=== PATIENT | female | born 1980 | race African-American/Black ===

== ENCOUNTER 2021-10-18 15:37 | Emergency (ER) | payer MEDICAID, MEDICARE, OTHER ==
[2021-10-18] MEDS ORDERED: Fluorescein Opthalmic Strip ONE (16:26)
[2021-10-18] MEDS ORDERED: Proparacaine 0.5% Opth 15 ML BOT ONE (16:27)
== END 2021-10-18 16:57 | disposition home or self-care (01) ==
LOC: ERS 15:37
DX: H57.89 Other specified disorders of eye and adnexa (principal); I10 Essential (primary) hypertension; F17.210 Nicotine dependence, cigarettes, uncomplicated
CPT/HCPCS: 99283

== ENCOUNTER 2022-10-15 21:29 | Emergency (ER) | payer OTHER, MEDICAID ==
[2022-10-15 23:57] LABS: Bacteria/HPF None Seen HPF (None Seen); Bilirubin Negative (Negative); Blood, Urine Negative (Negative); CAUTI Indications for Culture Pelvic or flank pain; Clarity Clear (Clear); Glucose, Urine (Dipstick) Normal (Negative); Ketone, Urine Negative (Negative); Leukocyte Negative Leu/uL (Negative); Nitrite Negative (Negative); Protein, Urine (Dipstick) 10 mg/dL (Neg-Trace); RBC/HPF 0-3 HPF (0-3); Specific Gravity, Urine 1.035 (1.002-1.036); Squamous Epithelial 0-3 HPF (0-3)
[2022-10-15 23:58] LABS: Pregnancy Test - Urine (BHCG) Negative (Negative); Pregu Control Background? CLEAR/WHITE (CLR/WHITE); Pregu Control Bar Appear? YES (CONTROL BAR); Specific Gravity 1.035 (1.002-1.036); Urine Culture Reflex No No
[2022-10-16] MEDS ORDERED: cefTRIAXone (ROCEPHIN) 500 MG VIAL ONE (01:09)
[2022-10-16] MEDS ORDERED: Lidocaine 1% PF 5 ML VIAL ONE (01:09)
[2022-10-16] MEDS ORDERED: Doxycycline 100 MG CAP ONE (01:10)
[2022-10-16 10:47] LABS: Chlam.trachomatis by PCR,Urine Not Detected (NotDetected); GC N.gonorrhoeae PCR,UrineVOID Not Detected (NotDetected)
== END 2022-10-16 01:17 | disposition home or self-care (01) ==
LOC: ERS 21:29
DX: N89.8 Other specified noninflammatory disorders of vagina (principal); F17.290 Nicotine dependence, other tobacco product, uncomplicated
CPT/HCPCS: 81001; 81025; 87480; 87491; 87510; 87591; 87660; 96372; 99283; J0696

== ENCOUNTER 2022-12-15 17:45 | Emergency (ER) | payer OTHER, MEDICAID | END 2022-12-15 18:27 | disposition home or self-care (01) | LOC: ERS 17:45 | DX: K03.81 Cracked tooth (principal); F17.290 Nicotine dependence, other tobacco product, uncomplicated | CPT/HCPCS: 99282 ==

== ENCOUNTER 2023-01-27 14:04 | Emergency (ER) | payer OTHER, MEDICAID ==
[2023-01-27] MEDS ORDERED: Dexamethasone 4 MG TAB ONE (15:24)
[2023-01-27] MEDS ORDERED: Ibuprofen 200 MG TAB ONE (15:24)
[2023-01-27] MEDS ORDERED: Bicillin LA 1.2 MILLION UNITS/2 ML SYRINGE ONE (15:25)
== END 2023-01-27 15:59 | disposition home or self-care (01) ==
LOC: ERS 14:04
DX: J02.9 Acute pharyngitis, unspecified (principal); F17.210 Nicotine dependence, cigarettes, uncomplicated
CPT/HCPCS: 96372; 99283; J0561; J8540

== ENCOUNTER 2023-03-31 13:01 | Emergency (ER) | payer OTHER, MEDICAID ==
[2023-03-31] MEDS ORDERED: Ketorolac Tromethamine 30 MG (1 mL) VIAL ONE (13:46)
[2023-03-31] MEDS ORDERED: Oxymetazoline HCl 0.05% (30 ML BOT) ONE (13:54)
[2023-03-31 14:09] LABS: SARS-CoV-2 NAA Rapid Test Not Detected (NotDetected)
== END 2023-03-31 15:44 | disposition home or self-care (01) ==
LOC: ERS 13:01
DX: R51.9 Headache, unspecified (principal); R50.9 Fever, unspecified; R05.9 Cough, unspecified; R09.81 Nasal congestion; F17.210 Nicotine dependence, cigarettes, uncomplicated
CPT/HCPCS: 96372; 99284; J1885